=== PATIENT | male | born 1940 | race Two or more races ===

== ENCOUNTER → 2017-01-05 | Outpatient (CLI) | payer OTHER ==
[2017-01-05 13:08] LABS: ALBUMIN 3.9 g/dL (3.4-5.0); ALBUMIN/GLOBULIN RATIO 1.1 (1.0-1.7); GFR 72.5; MAGNESIUM 2.1 mg/dL (1.8-2.4); POTASSIUM 3.8 mmol/L (3.5-5.1); TOTAL BILIRUBIN 1.1 mg/dL (0.2-1.0); TOTAL PROTEIN 7.3 g/dL (6.4-8.2)
[2017-01-06 04:09] LABS: HEMOGLOBIN A1C 6.1 % (4.8-5.6)
[2017-01-06 10:51] LABS: FREE T4 1.15 ng/dL (0.76-1.46); THYROID STIM HORMONE (TSH) 1.018 uIU/mL (0.358-3.740)
== END | disposition home or self-care (01) ==
LOC: LAB 12:22
PROVIDERS: ATTEND Family Medicine
DX: R00.2 Palpitations (principal)
CPT/HCPCS: 36415; 80053; 83036; 83735; 84439; 84443; G0103

== ENCOUNTER → 2017-02-16 | Outpatient (CLI) | payer OTHER ==
[2017-02-16 11:51] LABS: DIRECT BILIRUBIN 0.3 mg/dL (0.0-0.2); TOTAL BILIRUBIN 1.4 mg/dL (0.2-1.0); TOTAL PROTEIN 7.3 g/dL (6.4-8.2)
== END | disposition home or self-care (01) ==
LOC: LAB 10:47
PROVIDERS: ATTEND Family Medicine
DX: E80.6 Other disorders of bilirubin metabolism (principal)
CPT/HCPCS: 36415; 80076

== ENCOUNTER → 2017-03-05 | Outpatient (CLI) | payer OTHER ==
--- NOTE | 2017-03-05 11:18 | RAD ---
Examination: Ultrasound abdomen complete History: History of abnormal bilirubin Comparison: None available Findings: The pancreas is poorly visualized. The visualized aorta, IVC appear patent. No evidence of gallstones identified. The common bile duct measures 2.2 mm in transverse dimension. Liver measures 15.3 cm. Mild increased echogenicity noted throughout the liver. The right kidney measures 10.2 x 5.3 x 4.7 cm. The left kidney measures 10.6 x 4.5 x 5.2 cm. There is a cystic structure identified in the left kidney measuring 1.6 cm. The spleen measures 9.3 cm in length. Impression: 1. Echogenic appearing liver likely mild hepatic steatosis. 2. 1.6 cm cyst identified in the left kidney.
== END | disposition home or self-care (01) ==
LOC: US 09:22
PROVIDERS: ATTEND Family Medicine
DX: N28.1 Cyst of kidney, acquired (principal); E80.6 Other disorders of bilirubin metabolism
CPT/HCPCS: 76700

== ENCOUNTER → 2021-12-28 | Outpatient (CLI) | payer MEDICARE ==
--- NOTE | 2021-12-28 12:45 | RAD ---
LOWER EXTREMITY DUPLEX ARTERY ULTRASOUND 12/28/2021 Indication: Numbness and tingling, both feet. Decreased pulses. Comparison: None available Procedure: Arterial 2D and duplex images are obtained of the lower extremi ty arteries. Findings: Minimal diffuse atherosclerotic vascular disease is noted. Normal triphasic waveforms are p resent in the bilateral common femoral, superficial femoral, popliteal, anterior tibial, posterior ti bial, and dorsalis pedis arteries. IMPRESSION: Mild diffuse atherosclerotic vascular disease without evidence of hemodynamically signifi cant stenosis Electronically signed by: Axel Alatorre MD (12/28/2021 12:43 PM) [id number]
== END ==
LOC: US 08:45
PROVIDERS: ATTEND Nurse Practitioner Family
DX: I70.203 Unspecified atherosclerosis of native arteries of extremities, bilateral legs (principal); R20.0 Anesthesia of skin; R20.2 Paresthesia of skin; R09.89 Other specified symptoms and signs involving the circulatory and respiratory systems; R60.0 Localized edema
CPT/HCPCS: 93925